=== PATIENT | female | born 1990 ===

== ENCOUNTER 2023-07-30 15:46 | Outpatient (CLI) | payer OTHER | END 2023-07-30 15:49 | disposition home or self-care (01) | LOC: PRENATAL 15:46 | PROVIDERS: ATTEND Obstetrics & Gynecology Maternal & Fetal Medicine | DX: O36.80X0 Pregnancy with inconclusive fetal viability, not applicable or unspecified (principal); Z36.82 Encounter for antenatal screening for nuchal translucency; Z3A.11 11 weeks gestation of pregnancy ==